=== PATIENT | male | born 1985 | race Caucasian/White ===

== ENCOUNTER → 2020-10-30 10:47 | Outpatient (CLI) | payer OTHER, SELFPAY | PROVIDERS: Visit Provider Urology | DX: Z01.812 Encounter for preprocedural laboratory examination (principal); Z11.52 Encounter for screening for COVID-19; Z30.2 Encounter for sterilization | CPT/HCPCS: U0003 ==

== ENCOUNTER 2020-11-01 08:51 | Day surgery (SDC) | payer OTHER, SELFPAY ==
[2020-10-29 09:03] VITALS: BMI 30.4
[2020-11-01 09:03] VITALS: BP 164/94; PULSE 65; RESP 18; TEMP 36.4; O2SAT 100
[2020-11-01 10:10] VITALS: BP 164/88; PULSE 74; RESP 18; TEMP 36.3; O2SAT 98
--- NOTE | 2020-11-01 11:02 | [facility].OPNOTE ---
Date of procedure: 11/01/20 Pre-op Diagnosis:: Sterilization Post-op Diagnosis:: Sterilization Procedure performed:: Bilateral vasectomy Surgeon:: Rodrigo Valderrama MD Anesthesia: local Estimated blood loss (mL): 3 Clinical Note:: 35-year-old white male who was seen previously for vasectomy consultation presents for the procedure today. Operative findings:: Testicular examination within normal limits. Vasectomy was performed under local anesthetic without complications. Operative note:: Patient taken to the vasectomy suite after informed consent was obtained. On the stretcher he was prepped and draped in the standard surgical fashion. Testicular examination was performed and the testicles are normal size and shape and without masses. The left vas was located and brought up to the midline raphae. Local anesthetic was placed in the midline raphae under the scan and around the left vas. Incision was then made in the skin and the left vas was grasped with a tenaculum and brought up through the incision. The basal sheath was incised and the vas proper was dissected from its surrounding tissue. 1 Hemoclip was placed distally and 2 proximally. A 1 cm segment of the vas was then removed. The ends of the vas were cauterized and hemostasis achieved. The left vas was dropped into the left hemiscrotum and the right vas was palpated and brought up to the midline incision. Local anesthetic was placed around the left vas and the identical procedure was performed as on the left side. Hemostasis achieved in the right vas dropped back into the hemiscrotum. A 3-0 chromic suture was placed in a horizontal mattress fashion in the skin and compression dressing applied. Patient tolerated the procedure well there are no complications. Condition: stable Disposition: same day Specimens:: vas segments were not sent Complications:: None
== END 2020-11-01 10:24 | disposition home or self-care (01) ==
LOC: OUTP 08:53
PROVIDERS: PCP Internal Medicine; Visit Provider Urology
PROC: (CPT 55250; principal; 2020-11-01 10:00)
DX: Z30.2 Encounter for sterilization (principal)
CPT/HCPCS: 55250

== ENCOUNTER 2021-01-15 09:26 | Emergency (ER) | payer SELFPAY ==
[2021-01-15 09:41] VITALS: BP 165/111; PULSE 79; RESP 18; TEMP 36.4; O2SAT 97
--- NOTE | 2021-01-15 09:41 | PC.NURSE ---
Trauma alert called
--- NOTE | 2021-01-15 09:41 | PC.NURSE ---
ELIANE RECIO at
--- NOTE | 2021-01-15 09:43 | PC.NURSE ---
Trauma alert cancelled
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
[2021-01-15 09:58] VITALS: BMI 28.1
[2021-01-15 10:00] VITALS: BP 158/111; PULSE 74; RESP 18; O2SAT 98
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
[2021-01-15 11:30] VITALS: BP 162/100; PULSE 72; RESP 16; TEMP 36.7; O2SAT 99
== END 2021-01-15 11:30 | disposition home or self-care (01) ==
PROVIDERS: Emergency Provider Emergency Medicine; PCP Internal Medicine
DX: S22.39XA Fracture of one rib, unspecified side, initial encounter for closed fracture (principal); V86.56XA Driver of dirt bike or motor/cross bike injured in nontraffic accident, initial encounter; Y92.89 Other specified places as the place of occurrence of the external cause
CPT/HCPCS: 71045; 96372; 99281